=== PATIENT | female | born 1980 | race African-American/Black ===

== ENCOUNTER 2024-09-08 21:00 | Emergency (ER) | payer SELFPAY ==
[~2024-09-08] VITALS: Ht 157.5 cm; Wt 86.7 kg
[2024-09-08 21:07] VITALS: O2SAT 100
[2024-09-08 21:14] VITALS: BP 174/105; PULSE 81; RESP 16; O2SAT 100
[2024-09-09] MEDS: BACITRACIN ZINC OINT UDPKT TOP ONE (00:15)
[2024-09-09] MEDS: LIDOCAINE HCL/PF 1% 10 MG/ML 5ML VIAL INFIL ONE (00:15)
[2024-09-09 00:29] VITALS: TEMP 98.1
[2024-09-09] MEDS: ACETAMINOPHEN 325MG TABLET PO ONE (00:29)
[2024-09-09] MEDS: TETANUS, DIPHTHERIA, PERTUSSIS VAC/PF 0.5ML (>10YR OLD) IM ONE (00:36)
== END 2024-09-09 01:53 | disposition home or self-care (01) ==
LOC: ER 21:00
DX: S61.210A Laceration without foreign body of right index finger without damage to nail, initial encounter (principal); I10 Essential (primary) hypertension; W26.0XXA Contact with knife, initial encounter; Y93.89 Activity, other specified; Y92.89 Other specified places as the place of occurrence of the external cause; Y99.8 Other external cause status
CPT/HCPCS: 12001; 99283; 90715; 90471; Z7610; J3490

== ENCOUNTER 2024-09-20 05:53 | Emergency (ER) | payer SELFPAY ==
[~2024-09-20] VITALS: Ht 157.5 cm; Wt 88.3 kg
[2024-09-20 06:04] VITALS: BP 181/109; PULSE 88; RESP 16; TEMP 98.2; O2SAT 99
== END 2024-09-20 08:29 | disposition home or self-care (01) ==
LOC: ER 05:53
DX: S61.210D Laceration without foreign body of right index finger without damage to nail, subsequent encounter (principal); I10 Essential (primary) hypertension; Z48.02 Encounter for removal of sutures; X58.XXXA Exposure to other specified factors, initial encounter
CPT/HCPCS: 99281